=== PATIENT | male | born 1960 | race African-American/Black ===

== ENCOUNTER 2022-11-16 13:45 | Inpatient (IN) | payer BC, SELFPAY ==
[2022-11-16] VITALS (17 sets, daily range): BP systolic 115–233; BP diastolic 80–137; PULSE 89–126; RESP 20–30; TEMP 38.2–38.5; O2SAT 96–99; BMI 25.2
--- NOTE | ~2022-11-16 | US_ITS ---
EXAMINATION: US carotid duplex BI DATE: 11/17/2022 12:25 INDICATION: Encephalopathy with confusion. Cerebral atherosclerosis. TECHNIQUE: Grayscale, color Doppler, and pulsed Doppler images of the cervical carotid arteries were obtained. The degree of vessel stenosis is placed in one of the following categories: normal, <50%, 5 0-69%, >=70% but less than near-occlusion, near-occlusion, or total occlusion. Note that percent sten osis relative to normal distal artery lumen diameter is indirectly measured from velocity measurement s as described by James, et al. Radiology 2003; 229:340-346. COMPARISON: None. FINDINGS: RIGHT: The right common carotid artery (CCA) peak systolic velocity (PSV) is 93 cm/s. The right internal car otid artery (ICA) PSV is 65 cm/s. The right ICA end-diastolic velocity (EDV) is 22 cm/s. The right IC A/CCA PSV ratio is 0.7. Grayscale and color Doppler images yield an estimate of <50% diameter reducti on from plaque in the ICA. The external carotid artery (ECA) PSV is 76 cm/s. There is antegrade flow in the right vertebral artery. LEFT: The left CCA PSV is 95 cm/s. The left ICA PSV is 78 cm/s. The left ICA EDV is 28 cm/s. The left ICA/C CA PSV ratio is 0.8. Grayscale and color Doppler images yield an estimate of <50% diameter reduction from plaque in the ICA. The ECA PSV is 67 cm/s. There is antegrade flow in the left vertebral artery. IMPRESSION: 1. <50% stenosis in the right internal carotid artery. 2. <50% stenosis in the left internal carotid artery. Reviewed, dictated and finalized at location A. MANAGER
--- NOTE | ~2022-11-16 | MR_ITS ---
EXAMINATION: MR brain/brain stem wo con DATE: 11/17/2022 12:03 INDICATION: Altered mental status TECHNIQUE: Magnetic resonance imaging (MRI) of the brain and brainstem was performed without intraven ous contrast. Sequences included sagittal and axial T1-weighted SE, axial diffusion-weighted FS SE, a xial T2*-weighted GRE, axial 3D SWAN, axial T2-weighted FLAIR, and axial T2-weighted FSE. Apparent di ffusion coefficient (ADC) maps were created. COMPARISON: Head CT dated 11/16/2022 FINDINGS: There are no areas of restricted diffusion to suggest acute infarction. Small old lacunar infarcts at the left thalamus and posterior limb of the left internal capsule. There are 3 small foci of suscept ibility artifact consistent with chronic microhemorrhage, 2 in the right thalamus and one in the left neel. No abnormal intracranial mass lesion. There are scattered areas of nonspecific increased T2-we ighted signal intensity in the cerebral and pontine white matter, predominantly involving the deep an d periventricular white matter is within normal limits for age and likely sequela of chronic small ve ssel ischemic disease. There are no intraparenchymal signal abnormalities seen on the other pulse seq uences. The ventricles are symmetric and normal in size. Normal variant cavum of septum pellucidum an d vergae. There are no abnormal extra-axial fluid collections. Flow voids are seen in the cerebral ar teries on the T2-weighted sequences consistent with their expected patency. Changes of bilateral intr aocular lens replacement. Mild mucoperiosteal thickening the anterior bilateral ethmoid sinuses. IMPRESSION: 1. No acute intracranial process. 2. Small old lacunar infarcts at the left thalamus and posterior limb of the left internal capsule. 3. Tiny foci of susceptibility artifact at the right thalamus and left neel consistent with chronic m icrohemorrhage most typically related to hypertension. 4. Mild scattered cerebral and pontine white matter T2 hyperintensity which is within normal limits f or age and likely sequela of chronic small vessel ischemic disease. Reviewed, dictated and finalized at location A. CHBOARD MECHANIC IMPRESSION: 1. No acute intracranial process. 2. Small old lacunar infarcts at the left thalamus and posterior limb of the le ft internal capsule. 3. Tiny foci of susceptibility artifact at the right thalamus and left neel con sistent with chronic microhemorrhage most typically related to hypertension. 4. Mild scattered cerebral and pontine white matter T2 hyperintensity which is within normal limits for age and likely sequela of chronic small vessel ischemi c disease.
--- NOTE | ~2022-11-16 | US_ITS ---
Renal-Bladder ultrasound Clinical History: Renal failure Technique: Real-time sonographic imaging of the kidneys and urinary bladder was performed. Findings: The right kidney measures 11.5 cm in length and the left kidney measures 13.7 cm. There is no hydronephrosis or renal calculus identified. Renal cortical echogenicity is within normal limits. Benign left renal cyst present. The urinary bladder is moderately distended at the time of this exam. No intraluminal echoes are iden tified. No abnormal wall thickening is seen. Numerous small layering gallstones are incidentally noted in the gallbladder. Impression: Unremarkable ultrasound of the kidneys and urinary bladder. Cholelithiasis incidentally noted. Reviewed, dictated and finalized at location . AL SCIENCES DEPARTMENT CHAIR Impression: Unremarkable ultrasound of the kidneys and urinary bladder. Cholelithiasis incidentally noted.
--- NOTE | ~2022-11-16 | CT_ITS ---
Non-contrast Head CT History: Confusion Technique: Axial non-contrast imaging of the brain was performed. Dose reduction technique was used on this scan by utilizing automated exposure control and iterative reconstruction technique. The dose -length product (DLP) was 681.00 mGy-cm. Findings: There is no evidence of intracranial hemorrhage, mass lesion, or definite acute infarct. P robable small chronic lacunar infarcts in the bilateral basal ganglia. The ventricles and subarachno id spaces are normal in size. The calvarium appears normal. The visualized paranasal sinuses and ma stoid air cells are clear. Impression: Probable small chronic lacunar infarcts in bilateral basal ganglia. If there is concern for acute isc hemia, then MRI would be recommended for better evaluation. Reviewed, dictated and finalized at location . ON MOLDING MACHINE OPERATOR Impression: Probable small chronic lacunar infarcts in bilateral basal ganglia. If there is concern for acute ischemia, then MRI would be recommended for better evaluatio n.
--- NOTE | 2022-11-16 13:52 | ECG_ITS ---
Measurements Intervals [place] Rate: 103 P: 48 CA: 156 QRS: 32 QRSD: 105 T: 73 QT: 328 QTc: 430 Interpretive Statements SINUS TACHYCARDIA NONSPECIFIC ST & T-WAVE ABNORMALITY- INF/HIGH LAT LEADS BASELINE ARTIFACT- I, II, III, AVR, AVL, AVF, V1-V2 BORDERLINE ECG NO PREVIOUS ECG AVAILABLE FOR COMPARISON Electronically Signed On 11-16-2022 15:28:40 FLATWORK FINISHER HAND by Mustapha Ramon D.O.
[2022-11-16 13:55] LABS: Glucose Point of Care 416 mg/dl (65-105)
[2022-11-16] MEDS: SODIUM CHLORIDE 0.9% IV 1,000 ML 999 ML IV CONT (14:11)
[2022-11-16] MEDS: KETAMINE HCL (*CRX) 500 MG/10 ML VIAL 50 MG IV PUSH ×2 (14:12)
[2022-11-16 14:28] LABS: Appearance Urine Clear (Clear); Bilirubin Urine Negative (Negative); Blood Urine 1+ (Negative); Color Urine Yellow (Yellow); Glucose Urine UA 3+ mg/dL (Negative); Ketones Urine Trace mg/dL (Negative); Leukocyte Esterase Ur Negative LEU/UL (Negative); Nitrate Urine Negative (Negative); Protein Urine 3+ mg/dL (Negative); Urobilinogen Urine 0.2 mg/dL (<2.0)
[2022-11-16 14:33] LABS: Basophils Percent Auto 0.4 % (0.2-1.2); Eosinophils Percent Auto 0.2 % (0-4.4); Hematocrit 35.1 % (42.0-52.0); Hemoglobin 11.5 g/dL (14.0-18.0); Immature Granulocyte Absolute 0.03 K/mm3 (0.00-0.031); Immature Granulocyte Percent A 0.6 % (0-0.5); Lymphocytes Absolute Auto 1.28 K/mm3 (0.9-3.2); Lymphocytes Percent Auto 25.8 % (18.3-44.2); Mean Corpuscular HGB Conc 32.8 g/dl (32-36); Mean Corpuscular Hemoglobin 27.2 pg (26-34); Mean Platelet Volume 10.3 fl (7.4-10.4); Monocytes Absolute Auto 0.2 K/mm3 (0.1-0.6); Monocytes Percent Auto 3.8 % (2.6-8.5); Mucus Urine Rare /lpf; Neutrophils Absolute Auto 3.4 K/mm3 (1.3-6.7); Neutrophils Percent Auto 69.2 % (45.5-73.1); Platelet Count Result 148 k/mm3 (150-375); Red Blood Count 4.23 M/mm3 (4.6-6.20); Red Cell Distribution Width 11.8 % (11.5-14.5); WBC Urine 0-3 /hpf
[2022-11-16 14:34] LABS: Add Urine Microscopic? YES
[2022-11-16 14:35] LABS: Alveolar/Arterial O2 Gradient 44.5 mmHg; Base Excess ABG -5.8 mEq/l (+/-2.0); Fractional Inspired Oxygen 21 %; Oxygen Content ABG 15.7 %vol (16.0-22.0); Oxygen Saturation ABG 93.9 % (95.0-100.0); Oxyhemoglobin 91.8 % THb (90.0-100.0); PCO2 ABG 30.4 mmHg (35.0-45.0); PO2 ABG 68.8 mmHg (80.0-100.0); PO2 FiO2 Ratio Arterial Blood 3.28 %; Total Hemoglobin 12.1 g/dL (12.0-18.0); pH ABG 7.391 (7.350-7.450)
[2022-11-16 14:36] LABS: Device ROOM AIR; Modified Allen's Test Pass; Site Drawn RIGHT RADIAL
[2022-11-16 14:36] LABS: Lactic Acid Reflex 1.2 mmol/L (0.7-2.0)
[2022-11-16 14:37] LABS: Alanine Aminotransferase 16 U/L (6-50); Albumin Level 3.9 g/dL (3.5-5.1); Alkaline Phosphatase 142 U/L (38-126); Anion Gap 8 mmol/L (8-16); Aspartate Amino Transferase 24 U/L (17-59); Bilirubin,Total 0.4 mg/dL (0.2-1.3); Blood Urea Nitrogen 31 mg/dL (9-20); Carbon Dioxide 24 mmol/L (22-30); Chloride 106 mmol/L (98-107); Estimated Glomerular Filt Rate 25; Ethanol < 10 mg/dL (<10); Glucose 411 mg/dL (65-110); INR 1.1; Potassium 3.7 mmol/L (3.4-5.0); Prothrombin Time 13.3 Seconds (11.1-14.7); Sodium 138 mmol/L (137-145)
[2022-11-16] MEDS: hydrALAZINE HCL 20 MG/ML VIAL 10 MG IV PUSH ×2 (14:38→17:36)
[2022-11-16] MEDS: INSULIN HUMAN REGULAR (*BKC) 100 UNITS/ML 10 UNITS IV PUSH (14:39)
[2022-11-16 14:41] LABS: Amphetamine Screen Urine Negative (Negative); Barbiturate Screen Urine Negative (Negative); Benzodiazepines Screen Urine Negative (Negative); Cannabinoid Screen Urine Negative (Negative); Cocaine Screen Urine Negative (Negative); Methadone Screen Urine Negative (Negative); Opiate Screen Urine Negative (Negative); Phencyclidine Screen Urine Negative (Negative)
[2022-11-16] MEDS: LORazepam INJ (*CRX) 2 MG/ML VIAL IV PUSH (14:56)
[2022-11-16 15:01] LABS: Influenza A QL RT-PCR Negative (Negative); Influenza B QL RT-PCR Negative (Negative); SARS-CoV-2 RNA PCR Negative
[2022-11-16 15:04] LABS: Troponin I 0.066 ng/mL (0.000-0.034)
[2022-11-16] MEDS: LABETALOL HCL INJ 100 MG/20 ML VIAL 20 MG IV PUSH (15:32)
[2022-11-16 15:37] LABS: Glucose Point of Care 274 mg/dl (65-105)
--- NOTE | 2022-11-16 16:06 | ED.AMS ---
HPI - Altered Mental Status General Chief Complaint: Altered Mental Status Stated Complaint: Altered mental status Time Seen by Provider: 11/16/22 13:45 Source: EMS Mode of arrival: EMS Limitations: altered mental status History of Present Illness HPI narrative: 38-year-old with a history of hypertension, diabetes was brought in from home with altered mental status as per the EMS patient was hard to arouse this morning his called 911 upon EMS arrival patient was not responding to verbal cues sternal rub which woke him up but he has been found very confused patient was later transferred to the ER. Upon arrival to the ER patient is quite agitated and combative. As per the family there is no history of falling no alcohol or drug abuse. Daughter states that he was recently started on new antihypertensive medication which she is not quite sure. Has a history of diabetes and CKD and is scheduled to see physiotherapy aide in the next few weeks. Timing confirmed by: spouse Severity: moderate Related Data Home Medications Medication Instructions Recorded Confirmed insulin glargine-yfgn 100 unit/mL unit subcut 11/16/22 subcutaneous solution (Semglee (insulin glargine-yfgn)) lisinopril 10 tablet 11/16/22 mg-hydrochlorothiazide 12.5 mg tablet simvastatin 40 mg tablet mg 11/16/22 Allergies Allergy/AdvReac Type Severity Reaction Status Date / Time No Known Allergies Allergy Verified 11/16/22 14:51 Review of Systems Review of Systems: ROS unobtainable: Yes unobtainable due to medical condition PMFSH Past Medical History Medical History (Updated 11/16/22 @ 16:15 by Lalo Chambers MD) Diabetes mellitus Social History Social History (Updated 10/30/19 @ 17:49 by Taco Lr, PAGold) Smoking status: Never smoker Exam Narrative: GENERAL: well-nourished, confused , combative HEAD: Normocephalic, atraumatic. EYES: PERRLA and EOMI. ENT: Nares clear, no rhinorrhea or epistaxis. Mucous membranes moist. NECK: Supple. CHEST: Clear to auscultation. No respiratory distress. HEART: Regular rate and rhythm. No murmur heard. Normal peripheral pulses. ABDOMEN: Soft, nontender, nondistended, normal active bowel sounds. EXTREMITIES: Normal range of motion. No edema. SKIN: Warm, dry, no rash. NEURO: No focal deficits. Alert PSYCH: Normal mood and affect. Course Course Emergency Course: 62-year-old with a history of hypertension, diabetes was brought in with altered mental status he was quite agitated upon arrival to the ER I did give him ketamine to calm him down to obtain lab work, CT findings. However his blood pressure has been quite elevated systolic of 233 and a diastolic of 125 will give hydralazine 10 mg IV. I discussed with Dr. Taylor and recommended Precedex and labetalol. Vital Signs Vital signs: Vital Signs Pulse Rate 116 H 11/16/22 13:40 Respiratory Rate 20 11/16/22 13:40 Blood Pressure 233/125 H 11/16/22 13:40 Pulse Oximetry 96 11/16/22 13:40 Oxygen Delivery Room Air 11/16/22 13:40 Pulse Rate 119 H 11/16/22 15:30 Respiratory Rate 25 H 11/16/22 15:30 Blood Pressure 200/131 H 11/16/22 15:30 Pulse Oximetry 98 11/16/22 15:30 Oxygen Delivery Room Air 11/16/22 13:40 MDM - Altered Mental Status MDM Narrative Medical decision making narrative: 62-year-old with a history of hypertension diabetes was brought in for altered mental status he was extremely agitated and confused we will give him ketamine to sedate and obtain CT of the head. Obtain lab work including tox screen. His blood pressure was 233/125 will give 10 mg hydralazine and reassess Differential Diagnosis Differential diagnosis: Likely altered mental status, delirium, subarachnoid hemorrhage and other (Hypertensive encephalopathy, metabolic encephalopathy) Lab Data 11/16/22 14:21 11/16/22 14:21 Labs: Lab Results 11/16/22 11/16/22 11/16/22 Range/Units 13:51 14
[2022-11-16] MEDS: dexmedeTOMIDine 400 MCG/100 ML 400 MCG/100 ML BAG IV CONT (16:11)
--- NOTE | 2022-11-16 16:17 | ADMGEN ---
This patient, Aron Conte, was admitted to Intensive Care Unit-3 at 1615. Patient/family oriented to hospital policies and general routines including ID bracelet, bed and alarms, visiting hours, pain management, procedures, bathroom and other care routines, personal items, smoking policy, room service/diet, and visiting hours. Information on how to activate the Rapid Response Team has been discussed. Patient/Family are encouraged to report perceived risks to care and to ask questions if they do not understand what they are told or what they should do.
[2022-11-16 16:24] LABS: Glucose Point of Care 249 mg/dl (65-105)
--- NOTE | 2022-11-16 17:01 | PM.IMHP ---
H&P: HPI History of Present Illness Date/Time: 11/16/22 17:01 Chief Complaint: Altered mental status Narrative: This is a 62-year-old male patient who has a history of hypertension that is been uncontrolled for quite some time. The patient was brought into the emergency room from home due to altered mental status. The patient was difficult to arouse this morning and his called 911. The patient was not responding to verbal cues or sternal rub. When the patient did wake up use very confused. Upon arrival to the emergency room he was quite agitated and combative. The family stated that there was no alcohol or drug use. According to the daughter the patient was sent home from work 1 day due to elevated blood pressure. His medications were changed around but his blood pressure remained elevated. The patient has a history of diabetes and chronic kidney disease and was scheduled to see a superintendent pressure within the next couple weeks. Head CT was read as probable small chronic lacunar infarcts in bilateral basal ganglia. If there is concern for ski Kelsy then MRI would be recommended for later evaluation. Initially the patient was saying that he could not see. 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 The patient was able to tell me how many fingers that I held up. The patient was given ketamine in the emergency room, IV fluids, Apresoline, insulin, Ativan, and labetalol. The patient was admitted to inpatient status in ICU on the date of service of 11/16/2022. Review of Systems Review of Systems: See HPI All systems reviewed & are unremarkable except as noted in HPI and below Constitutional: Constitutional: Reports as per HPI and Reports no additional constitutional complaints Eyes: Eyes: Reports as per HPI and Reports no additional eye complaints ENT: Reports system reviewed and no additional complaints, except as documented and Reports Normal hearing present Cardiovascular: Cardiovascular: Reports no additional cardiovascular complaints Respiratory: Respiratory: Reports no additional respiratory complaints and Reports no additional respiratory complaints Gastrointestinal: Gastrointestinal: Reports as per HPI and Reports no additional gastrointestinal complaints Musculoskeletal: Musculoskeletal: Reports no additional musculoskeletal complaints Integumentary/Breasts: Skin/Breast: Reports system reviewed and no additional complaints, except as docu and Reports as per HPI Neurologic: Reports system reviewed and no additional complaints, except as documented, Reports as per HPI and Reports Normal hearing present Psychiatric: Psychiatric: Reports no additional psychiatric complaints and Reports as per HPI Endocrine: Endocrine: Reports no additional endocrine complaints Hematologic/Lymphatic: Hematologic/Lymphatic: Reports no additional hematologic/lymphatic complaints Allergic/Immunologic: Allergic/Immunologic: Reports no additional allergic/immunologic complaints PMFSH Past Medical History Medical History (Updated 11/16/22 @ 22:32 by Kathia Brandon NP) 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 He did have 2 sons but 1 in an injury. He has 1 daughter. He has never smoked. He works for [employer]. 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 Code status full code Smoking status: Never smoker Alcohol intake: never Substance use: never Substance use type: does not use Spi
[2022-11-16] MEDS: INSULIN ASPART (*BKC) 100 UNITS/ML SUB-Q (17:39)
--- NOTE | 2022-11-16 20:01 | PC.NURSE ---
Family unable to give most updated and recent daily medications the patient takes at home. Patient is currently altered and is unable to provide accurate medical or medication history at this time.
[2022-11-16] MEDS: MINERAL OIL/WHITE PETROLATUM OINTMENT 1 APPLIC EACH EYE (20:09)
[2022-11-17] VITALS (12 sets, daily range): BP systolic 118–155; BP diastolic 74–103; PULSE 62–99; RESP 13–20; TEMP 36.1–37.6; O2SAT 97–100
--- NOTE | 2022-11-17 | ECHO_ITS ---
Patient Info Name: Aron Conte Age: 62 years : 1960 Gender: Male Ht: 73 in Wt: 191 lbs BSA: 2.12 m2 HR: 66 bpm BP: 136 / 88 mmHg Heart Rhythm: Sinus Rhythm Exam Date: 11/17/2022 7:54 AM Exam Location: [facility] Patient Status: Inpatient Admit Date: 11/16/2022 Staff Ordering Physician: Kathia Brandon NP Bootmaker Hand: Mir Lopez RDCS, RT Attending Provider: Shahab Lenz MD Referring Physician: Roma VILLATORO; Exam Type: CA echo doppler color flow Study Info Indications I10 - Essential (primary) hypertension Complete two-dimensional, color flow and Doppler transthoracic echocardiogram is performed. Strain analysis performed. Summary 1. Complete two-dimensional, color flow and Doppler transthoracic echocardiogram is performed. 2. Left ventricular chamber dimension is normal. 3. Left ventricular systolic function is mildly reduced, estimated at 45-50%. 4. There is severe concentric increased left ventricular wall thickness. 5. The left ventricular diastolic function is grade I diastolic dysfunction. 6. Global longitudinal strain is abnormal at -10 %. Strain pattern does have some apical sparing, which can be seen in amyloid cardiomyopathy. Recommend clinical correlation. 7. Right ventricular systolic function is normal. 8. Left atrial chamber dimension is mildly enlarged. 9. Right atrial chamber dimension is mildly enlarged. 10. There is mild tricuspid valve regurgitation. 11. The aortic root size at the sinus of Valsalva is dilated. Left Ventricle Left ventricular chamber dimension is normal. Left ventricular systolic function is mildly reduced, estimated at 45-50%. There is severe concentric increased left ventricular wall thickness. The left ventricular diastolic function is grade I diastolic dysfunction. Global longitudinal strain is abnormal at -10 %. Strain pattern does have some apical sparing, which can be seen in amyloid cardiomyopathy. Recommend clinical correlation. Right Ventricle Right ventricular chamber dimension is normal. Right ventricular systolic function is normal. Left Atria Left atrial chamber dimension is mildly enlarged. Right Atria Right atrial chamber dimension is mildly enlarged. Atrial Septum Intact interatrial septum visualized by color flow imaging. Aortic Valve The aortic valve is trileaflet. There is no aortic valve stenosis. There is no aortic valve regurgitation. Pulmonic Valve The pulmonic valve is normal. There is trace pulmonic regurgitation. Mitral Valve The mitral valve has thickened leaflets. There is no mitral valve stenosis. There is trace mitral valve regurgitation. There is mild mitral valve calcification. Tricuspid Valve There is no significant tricuspid valve stenosis. There is mild tricuspid valve regurgitation. Pericardium/Pleural There is trivial pericardial effusion. Inferior Vena Cava Normal inferior vena cava with >50% collapse upon inspiration consistent with normal right atrial pressure, 3 mmHg. Aorta The aortic root size at the sinus of Valsalva is dilated. Left Ventricular Outflow Tract Name Value Normal LVOT 2D LVOT Diameter 2.4 cm LVOT Doppler
[2022-11-17 00:07] LABS: Glucose Point of Care 340 mg/dl (65-105)
[2022-11-17 01:03] LABS: Eosinophil Urine None Seen % (None Seen)
[2022-11-17] MEDS: INSULIN ASPART (*BKC) 100 UNITS/ML SUB-Q ×5 (01:44→20:27)
[2022-11-17] MEDS: SODIUM CHLORIDE 0.9% IV 250 ML 50 ML IV CONT (01:48)
[2022-11-17 03:45] LABS: Albumin Level 3.1 g/dL (3.5-5.1); Anion Gap 7 mmol/L (8-16); Blood Urea Nitrogen 31 mg/dL (9-20); CRP 1.1 mg/dL (<1.0); Calcium 7.7 mg/dL (8.4-10.2); Carbon Dioxide 20 mmol/L (22-30); Chloride 109 mmol/L (98-107); Creatine Kinase 255 U/L (55-170); Estimated CRCL calculation 24 ml/min; Estimated Glomerular Filt Rate 24; Glucose 358 mg/dL (65-110); Magnesium 1.5 mg/dL (1.6-2.3); Phosphorus 4.1 mg/dL (2.5-4.5); Potassium 3.4 mmol/L (3.4-5.0); Sodium 136 mmol/L (137-145)
[2022-11-17 03:48] LABS: Complement C3 119 mg/dL (88-165)
[2022-11-17 03:52] LABS: Erythrocyte Sedimentation Rate 71 mm/hr (0-20)
[2022-11-17 04:22] LABS: HIV 1/2 Ab P24 Ag Result Negative (Negative)
[2022-11-17] MEDS: dexmedeTOMIDine 400 MCG/100 ML 400 MCG/100 ML BAG 8.86 MCG IV CONT (04:35)
[2022-11-17 04:46] LABS: Creatinine Urine 117.9 mg/dL
[2022-11-17 04:50] LABS: Hepatitis B Surface Antigen Negative (Negative)
[2022-11-17 04:55] LABS: Hepatitis B Core IgM Result Negative (Negative)
[2022-11-17 04:55] LABS: Potassium Urine Random 31.2 meq/L
[2022-11-17 05:08] LABS: Hepatitis B Surface Anti Res Negative; Hepatitis C Virus Antibody Negative (Negative)
[2022-11-17 06:16] LABS: Glucose Point of Care 366 mg/dl (65-105)
[2022-11-17 06:53] LABS: Total Protein Urine Random > 600 mg/dL
--- NOTE | 2022-11-17 09:16 | WPDCNINT ---
Assessment and Plan Assessment and plan (1) Altered mental status: Code(s): R41.82 - Altered mental status, unspecified Status: Acute Assessment and Plan: Patient presented with confusion and altered mental status. In ER he was combative agitated On presentation he had systolic blood pressure of 233. Head CT was negative It appears patient has hypertensive encephalopathy. Patient was given acute remain and started on Precedex infusion overnight This morning patient is now calm alert awake and oriented x3 and his blood pressures has come down He may have had a CVA and MRI is ordered His tox screen was negative as was alcohol level Check ammonia level and TSH Speech evaluation, PT OT evaluation (2) Diabetes mellitus: Code(s): E11.9 - Type 2 diabetes mellitus without complications Status: Acute Assessment and Plan: Uncontrolled diabetes mellitus S from history his blood sugar level Patient is not compliant with his insulin and takes it irregularly HbA1c is pending Change sliding scale to 4 output moderate level. Switch to Q a.c. and HS once patient started eating Will start Lantus 25 units and titrate as needed Consult crib attendant (3) Hyperlipidemia: Code(s): E78.5 - Hyperlipidemia, unspecified Status: Acute Assessment and Plan: Continue simvastatin (4) CKD (chronic kidney disease) stage 4, GFR 15-29 ml/min: Code(s): N18.4 - Chronic kidney disease, stage 4 (severe) Status: Acute Assessment and Plan: Patient presented with elevated creatinine of 3.1 which is 3.2 today. Patient has only mildly elevated BUN which is suggestive of chronic to creatinine level which could be explained by his uncontrolled hypertension and diabetes. Consult nephrology Renal ultrasound is ordered and pending Other workup for chronic kidney disease is ordered and pending Will give IV fluids monitor urine output electrolytes and creatinine (5) Noncompliance: Code(s): Z91.199 - Patient's noncompliance with other medical treatment and regimen due to unspecified reason Status: Acute Assessment and Plan: Patient is noncompliant with his medications. I have counseled encouraged patient to take his medications regularly (6) Electrolyte abnormality: Code(s): E87.8 - Other disorders of electrolyte and fluid balance, not elsewhere classified Status: Acute Assessment and Plan: Replace low potassium magnesium (7) Hypertensive emergency: Code(s): I16.1 - Hypertensive emergency Status: Acute Assessment and Plan: Patient presented with systolic blood pressure of above 200. He was given IV labetalol in ER. He was agitated in ER and was given IV ketamine and was started on Precedex infusion. This led to improvement in blood pressure patient blood pressure spontaneously decreased without requiring any further intervention. Now off of Precedex He is calm and alert and awake I will resume p.o. blood pressure medications once he clears a swallow evaluation Echocardiogram is ordered and pending Plan DVT prophylaxis -SCDs Stress ulcer prophylaxis - Consult speech for swallow evaluation PT OT consult Code Status - Full Code Transfer out of ICU today Edger Liner Consult Note Consult date: 11/17/22 Reason for consult: Hypertensive emergency HPI: Aron Conte is a 62 year old male with past medical history of hypertension diabetes and visual impairment who presented yesterday to ER with chief complaint of altered mental status and confusion. In the ER patient's reported that she was having hard time waking him up he was confused when aroused. In ER patient was agitated and combative and a systolic blood pressure was 233. Family denied any alcohol or drug abuse. Patient was given ketamine for agitation in ER. And was given labetalol. His blood pressure improved and patient became more calm. He was started on Precedex infusion a
[2022-11-17] MEDS: KCL 40 MEQ/0.45% NS 1,000 ML 100 ML IV CONT (09:21)
[2022-11-17] MEDS: MINERAL OIL/WHITE PETROLATUM OINTMENT 1 APPLIC EACH EYE (09:21)
[2022-11-17] MEDS: MAGNESIUM SULF 2 GM/WATER 50ML 2 GM/50 ML BAG IVPB (09:21)
[2022-11-17] MEDS: INSULIN GLARGINE (*BKC) 100 UNITS/ML 25 UNITS SUB-Q (09:25)
[2022-11-17 09:39] LABS: Glucose Point of Care 304 mg/dl (65-105)
[2022-11-17 10:05] LABS: Ammonia < 9 umol/L (9-30)
--- NOTE | 2022-11-17 11:01 | PCSTNOTE ---
Please refer to the Bedside Swallow Evaluation in the EMR. Please note, silent aspiration cannot be ruled out at bedside.
[2022-11-17 12:39] LABS: Glucose Point of Care 223 mg/dl (65-105)
--- NOTE | 2022-11-17 12:44 | P.CONNP_ITS ---
Assessment and Plan Assessment and plan (1) CKD (chronic kidney disease): Code(s): N18.9 - Chronic kidney disease, unspecified Status: Chronic Assessment and Plan: * specifics of this are not clear * per patient/family, he was recently told about his kidney disease on recent ER visit at [facility] * he is apparently scheduled to see an outpatient sander portable machine for further evaluation * appears compensated at this time * suspect poor control of hypertension and diabetes to blame * follow-up on renal ultrasound and serologies ordered * follow repeat labs and UOP (2) Altered mental status: Code(s): R41.82 - Altered mental status, unspecified Status: Acute Assessment and Plan: * as noted on admission * associated with systolic BP > [address] * presumably hypertensive encephalopathy * more calm and awake today * BP doing better * negative tox screen * MRI ordered for further evalutaion * follow mentation (3) Hypertensive emergency: Code(s): I16.1 - Hypertensive emergency Status: Acute Assessment and Plan: * as noted by presentation * BP controlled more so with sedation than BP medications * to resume oral medications soon * follow-up on Echo * follow BP parameters * given CKD, would avoid overcontrol of BP -- aim for 140 - 150s systolic (4) Diabetes mellitus: Code(s): E11.9 - Type 2 diabetes mellitus without complications Status: Chronic Assessment and Plan: * poor control suspected * follow-up on A1c * on Lantus and SSI * glycemic control Long extensive discussion (> 20 minutes) with the patient's at bedside regarding his renal dysfunction and hypertension and my concern that his hypertension and possibly his diabetes are partly to blame for his renal insufficiency. Per his 's report, he is scheduled to see a sander portable machine for further evaluation of his CKD. Will follow up on his renal ultrasound and what serological studies have been ordered Will continue to follow. History of Present Illness Reason for Consult Consult date: 11/17/22 Reason for consult: acute renal failure Chief Complaint Chief complaint: hypertensive encephalopathy History of Present Illness Narrative: The patient is a 62-year-old male with a past medical history as outlined below who presented to [facility] Emergency room for altered mental status. Most of the information I have obtained is from review of the electronic medical record as well as discussion with the physicians/nurses involved in the patient's care along with the patient as he is currently more awake /calmer and able to provide some history. The patient's called 911 when apparently earlier this morning he was difficult to arouse. He was not responding to sternal rub or verbal cues apparently. When he did eventually of wake up, he was quite confused. His called 911 and he was subsequently transferred to the emergency room for further assessment. Workup and evaluation emergency room demonstrated the patient be quite hy pertensive and agitated along with being combative. Apparently, per other family members, he was sent home from work previously due to elevated blood pressures. He was given medications in the emergency room to help his blood pressure and given his agitation / combativeness, he was also given IV sedation as well. These interventions did improve his blood pressure but his mental status did not really improve. On further questioning, he apparently had been seen in [facility] E
--- NOTE | 2022-11-17 12:44 | PM.CNNEP ---
Assessment and Plan Assessment and plan (1) CKD (chronic kidney disease): Code(s): N18.9 - Chronic kidney disease, unspecified Status: Chronic Assessment and Plan: specifics of this are not clear per patient/family, he was recently told about his kidney disease on recent ER visit at [facility] he is apparently scheduled to see an outpatient barrel lathe operator for further evaluation appears compensated at this time suspect poor control of hypertension and diabetes to blame follow-up on renal ultrasound and serologies ordered follow repeat labs and UOP (2) Altered mental status: Code(s): R41.82 - Altered mental status, unspecified Status: Acute Assessment and Plan: as noted on admission associated with systolic BP > [address] presumably hypertensive encephalopathy more calm and awake today BP doing better negative tox screen MRI ordered for further evalutaion follow mentation (3) Hypertensive emergency: Code(s): I16.1 - Hypertensive emergency Status: Acute Assessment and Plan: as noted by presentation BP controlled more so with sedation than BP medications to resume oral medications soon follow-up on Echo follow BP parameters given CKD, would avoid overcontrol of BP -- aim for 140 - 150s systolic (4) Diabetes mellitus: Code(s): E11.9 - Type 2 diabetes mellitus without complications Status: Chronic Assessment and Plan: poor control suspected follow-up on A1c on Lantus and SSI glycemic control Long extensive discussion (> 20 minutes) with the patient's at bedside regarding his renal dysfunction and hypertension and my concern that his hypertension and possibly his diabetes are partly to blame for his renal insufficiency. Per his 's report, he is scheduled to see a barrel lathe operator for further evaluation of his CKD. Will follow up on his renal ultrasound and what serological studies have been ordered Will continue to follow. History of Present Illness Reason for Consult Consult date: 11/17/22 Reason for consult: acute renal failure Chief Complaint Chief complaint: hypertensive encephalopathy History of Present Illness Narrative: The patient is a 62-year-old male with a past medical history as outlined below who presented to [facility] Emergency room for altered mental status. Most of the information I have obtained is from review of the electronic medical record as well as discussion with the physicians/nurses involved in the patient's care along with the patient as he is currently more awake /calmer and able to provide some history. The patient's called 911 when apparently earlier this morning he was difficult to arouse. He was not responding to sternal rub or verbal cues apparently. When he did eventually of wake up, he was quite confused. His called 911 and he was subsequently transferred to the emergency room for further assessment. Workup and evaluation emergency room demonstrated the patient be quite hypertensive and agitated along with being combative. Apparently, per other family members, he was sent home from work previously due to elevated blood pressures. He was given medications in the emergency room to help his blood pressure and given his agitation / combativeness, he was also given IV sedation as well. These interventions did improve his blood pressure but his mental status did not really improve. On further questioning, he apparently had been seen in [facility] Emergency room recently and was told that he had chronic kidney disease and that he needs to follow up with a barrel lathe operator which was apparently scheduled in the next couple of weeks. I had CT scan did not show any acute intracranial abnormalities but there was still a concern for possible CVA. Given his issues with his altered mentation and hypertension, he was admitted to the intensi
[2022-11-17 14:09] LABS: Hemoglobin A1C 10.7 % (<5.7)
[2022-11-17 16:10] LABS: Glucose Point of Care 155 mg/dl (65-105)
[2022-11-17 20:31] LABS: Glucose Point of Care 295 mg/dl (65-105)
[2022-11-17 23:42] LABS: Basophils Percent Auto 0.4 % (0.2-1.2); Eosinophils Absolute Auto 0.1 K/mm3 (0-0.3); Eosinophils Percent Auto 1.4 % (0-4.4); Hematocrit 31.3 % (42.0-52.0); Hemoglobin 10.5 g/dL (14.0-18.0); Immature Granulocyte Absolute 0.03 K/mm3 (0.00-0.031); Immature Granulocyte Percent A 0.5 % (0-0.5); Lymphocytes Absolute Auto 1.88 K/mm3 (0.9-3.2); Lymphocytes Percent Auto 33.2 % (18.3-44.2); Mean Corpuscular HGB Conc 33.5 g/dl (32-36); Mean Corpuscular Hemoglobin 27.8 pg (26-34); Mean Corpuscular Volume 82.8 fl (80-100); Mean Platelet Volume 10.1 fl (7.4-10.4); Monocytes Absolute Auto 0.4 K/mm3 (0.1-0.6); Monocytes Percent Auto 6.9 % (2.6-8.5); Neutrophils Absolute Auto 3.3 K/mm3 (1.3-6.7); Neutrophils Percent Auto 57.6 % (45.5-73.1); Platelet Count Result 145 k/mm3 (150-375); Red Blood Count 3.78 M/mm3 (4.6-6.20); Red Cell Distribution Width 12.1 % (11.5-14.5); White Blood Count 5.7 K/mm3 (4.5-10.0)
[2022-11-18] VITALS (12 sets, daily range): BP systolic 129–159; BP diastolic 72–97; PULSE 80–106; RESP 17–22; TEMP 36.4–37.7; O2SAT 96–99; BMI 25.7
[2022-11-18 03:55] LABS: Hematocrit 31.3 % (42.0-52.0); Hemoglobin 10.4 g/dL (14.0-18.0); Mean Corpuscular HGB Conc 33.2 g/dl (32-36); Mean Corpuscular Hemoglobin 27.8 pg (26-34); Mean Corpuscular Volume 83.7 fl (80-100); Mean Platelet Volume 10.6 fl (7.4-10.4); Platelet Count Result 143 k/mm3 (150-375); Red Blood Count 3.74 M/mm3 (4.6-6.20); Red Cell Distribution Width 12.2 % (11.5-14.5); White Blood Count 5.6 K/mm3 (4.5-10.0)
[2022-11-18 04:14] LABS: Alanine Aminotransferase 14 U/L (6-50); Albumin Level 2.8 g/dL (3.5-5.1); Alkaline Phosphatase 90 U/L (38-126); Anion Gap 9 mmol/L (8-16); Aspartate Amino Transferase 33 U/L (17-59); Bilirubin,Total 0.4 mg/dL (0.2-1.3); Blood Urea Nitrogen 38 mg/dL (9-20); Calcium 7.7 mg/dL (8.4-10.2); Carbon Dioxide 18 mmol/L (22-30); Chloride 108 mmol/L (98-107); Estimated CRCL calculation 22 ml/min; Estimated Glomerular Filt Rate 21; Glucose 150 mg/dL (65-110); Phosphorus 4.6 mg/dL (2.5-4.5); Potassium 3.1 mmol/L (3.4-5.0); Sodium 135 mmol/L (137-145)
[2022-11-18 08:09] LABS: Glucose Point of Care 279 mg/dl (65-105)
[2022-11-18] MEDS: INSULIN ASPART (*BKC) 100 UNITS/ML SUB-Q (08:59)
[2022-11-18] MEDS: INSULIN GLARGINE (*BKC) 100 UNITS/ML 30 UNITS SUB-Q (09:00)
[2022-11-18] MEDS: amLODIPine BESYLATE 5 MG TABLET 10 MG PO (09:01)
[2022-11-18] MEDS: ACETAMINOPHEN 325 MG TABLET 650 MG PO (10:18)
--- NOTE | 2022-11-18 11:34 | PM.PNNEP ---
Progress Note: A&P Assessment and Plan (1) CKD (chronic kidney disease): Code(s): N18.9 - Chronic kidney disease, unspecified Status: Chronic Assessment and Plan: specifics of this are not clear per patient/family, he was recently told about his kidney disease on recent ER visit at [facility] records requested but not available at this time he is apparently scheduled to see an outpatient lease analyst for further evaluation appears compensated at this time suspect poor control of hypertension and diabetes to blame renal ultrasound unremarkable serologies pending follow repeat labs and UOP (2) Altered mental status: Code(s): R41.82 - Altered mental status, unspecified Status: Acute Assessment and Plan: resolved as noted on admission associated with systolic BP > [address] presumably hypertensive encephalopathy more calm and awake today BP doing better negative tox screen MRI of brain results noted follow mentation (3) Hypertensive emergency: Code(s): I16.1 - Hypertensive emergency Status: Acute Assessment and Plan: resolved as noted by presentation back on home oral medications Echo reuslts reviewed follow BP parameters given CKD, would avoid overcontrol of BP -- aim for 140 - 150 systolic (4) Diabetes mellitus: Code(s): E11.9 - Type 2 diabetes mellitus without complications Status: Chronic Assessment and Plan: poor control suspected follow-up on A1c on Lantus and SSI glycemic control Will continue to follow. Subjective Date/time seen: 11/18/22 11:34 No apparent distress noted at the time of my visit; BP control seems acceptable and his mentation appears back to baseline per family; no other issues/events overnight or earlier this morning; no complaints voiced currently. Exam Narrative: General: WD/WN AA male in NAD Heart: normal S1 and S2; no rub Lungs: clear to auscultation Abdomen: soft, nontender, nondistended, positive bowel sounds Extremities: no cyanosis or clubbing; no edema Skin: warm and dry Objective Data Vital Signs Vital Signs: Vital Signs Temp Pulse Resp BP Pulse Ox O2 Del Method 11/18/22 10:00 97 134/93 H 98 11/18/22 08:00 87 19 96 Room Air 11/18/22 08:00 98.9 F 87 19 148/97 H 96 11/18/22 08:00 87 11/18/22 06:00 86 18 148/92 H 97 11/18/22 06:00 85 11/18/22 04:00 87 Room Air 11/18/22 04:00 98.5 F 87 22 H 145/90 H 97 11/18/22 04:00 87 11/18/22 02:00 90 18 136/86 97 11/18/22 02:00 95 11/18/22 00:00 80 19 97 Room Air 11/18/22 00:00 99.8 F H 80 19 156/95 H 97 11/18/22 00:00 80 11/17/22 22:00 73 20 155/97 H 98 11/17/22 22:00 76 11/17/22 20:00 80 11/17/22 20:00 98.3 F 80 18 139/103 H 99 11/17/22 19:50 Room Air Intake/Output Intake/Output: Intake & Output 11/15/22 11/16/22 11/17/22 11/18/22 23:59 23:59 23:59 23:59 Intake Total 6323 993 0899 Output Total 200 1000 350 Balance 865 -135 990 Meds/Results Medications: Active Medications Generic Name Dose Route Start Last Admin Trade Name Freq PRN Reason Stop Dose Admin Acetaminophen 650 mg 11/18/22 10:00 11/18/22 10:18 Acetaminophen 325 Mg Tablet PO 650 mg Q4H PRN Administration Headache Amlodipine Besylate 10 mg 11/18/22 09:00 11/18/22 09:01 Amlodipine Besylate 5 Mg Tablet PO 10 mg QAM IVAN Administration Dextrose 12.5 gm 11/16/22 22:22 Dextrose 50% 25 Gm/50 Ml Syringe IV PUSH PRN PRN Hypoglycemia Protocol Glucagon 1 mg 11/16/22 22:22 Glucagon For Inj 1 Mg Vial IM PRN PRN Hypoglycemia Protocol Glucose 15 gm 11/16/22 22:22 Glucose Oral Gel 15 Gm Of Glucse In 37.5 Gm Tube PO PRN PRN Hypoglycemia Protocol Hydralazine HCl 20 mg 11/16/22 18:25 Hydralaz
--- NOTE | 2022-11-18 11:34 | P.PNNP_ITS ---
Progress Note: A&P Assessment and Plan (1) CKD (chronic kidney disease): Code(s): N18.9 - Chronic kidney disease, unspecified Status: Chronic Assessment and Plan: * specifics of this are not clear * per patient/family, he was recently told about his kidney disease on recent ER visit at [facility] * records requested but not available at this time * he is apparently scheduled to see an outpatient contact center professional for further evaluation * appears compensated at this time * suspect poor control of hypertension and diabetes to blame * renal ultrasound unremarkable * serologies pending * follow repeat labs and UOP (2) Altered mental status: Code(s): R41.82 - Altered mental status, unspecified Status: Acute Assessment and Plan: * resolved * as noted on admission * associated with systolic BP > [address] * presumably hypertensive encephalopathy * more calm and awake today * BP doing better * negative tox screen * MRI of brain results noted * follow mentation (3) Hypertensive emergency: Code(s): I16.1 - Hypertensive emergency Status: Acute Assessment and Plan: * resolved * as noted by presentation * back on home oral medications * Echo reuslts reviewed * follow BP parameters * given CKD, would avoid overcontrol of BP -- aim for 140 - 150 systolic (4) Diabetes mellitus: Code(s): E11.9 - Type 2 diabetes mellitus without complications Status: Chronic Assessment and Plan: * poor control suspected * follow-up on A1c * on Lantus and SSI * glycemic control Will continue to follow. Subjective Date/time seen: 11/18/22 11:34 No apparent distress noted at the time of my visit; BP control seems acceptable and his mentation appears back to baseline per family; no other issues/events overnight or earlier this morning; no complaints voiced currently. Exam Narrative: General: WD/WN AA male in NAD Heart: normal S1 and S2; no rub Lungs: clear to auscultation Abdomen: soft, nontender, nondistended, positive bowel sounds Extremities: no cyanosis or clubbing; no edema Skin: warm and dry Objective Data Vital Signs Vital Signs: Vital Signs Temp Pulse Resp BP Pulse Ox O2 Del Method 11/18/22 10:00 97 134/93 H 98 11/18/22 08:00 87 19 96 Room Air 11/18/22 08:00 98.9 F 87 19 148/97 H 96 11/18/22 08:00 87 11/18/22 06:00 86 18 148/92 H 97 11/18/22 06:00 85 11/18/22 04:00 87 Room Air 11/18/22 04:00 98.5 F 87 22 H 145/90 H 97 11/18/22 04:00 87 11/18/22 02:00 90 18 136/86 97 11/18/22 02:00 95 11/18/22 00:00 80 19 97 Room Air 11/18/22 00:00 99.8 F H 80 19 156/95 H 97 11/18/22 00:00 80 11/17/22 22:00 73 20 155/97 H 98 11/17/22 22:00 76 11/17/22 20:00 80 11/17/22 20:00 98.3 F 80 18 139/103 H 99 11/17/22 19:50 Room Air Intake/Output Intake/Output: Intake & Output 11/15/22 11/16/22 11/17/22 11/18/22 23:59 23:59 23:59 23:59 Intake Total 6361 996 7230 Output Total 200 1000 350 Balance 865 -135 990 Meds/Results Medi
[2022-11-18 11:37] LABS: Glucose Point of Care 124 mg/dl (65-105)
--- NOTE | 2022-11-18 12:58 | PC.NURSE ---
This patient, Aron Conte, was transferred to [facility] on 11/18/22 at 1250. Personal belongings sent with patient. Report given to Sowmya. Appropriate documentation sent with patient.
--- NOTE | 2022-11-18 14:15 | PM.IMPN ---
Progress Note: A&P Assessment and Plan (1) Altered mental status: Code(s): R41.82 - Altered mental status, unspecified Status: Acute (2) Diabetes mellitus: Code(s): E11.9 - Type 2 diabetes mellitus without complications Status: Acute (3) CKD (chronic kidney disease) stage 4, GFR 15-29 ml/min: Code(s): N18.4 - Chronic kidney disease, stage 4 (severe) Status: Acute (4) Hypertensive emergency: Code(s): I16.1 - Hypertensive emergency Status: Acute Plan Patient confused. Monitoring systolic blood pressure. Head CT was negative. Hypertensive encephalopathy. MRI results pending. Speech, PT OT eval. Systolic pressure of 200. Continue IV labetalol Starting hydralazine and amlodipine HBA1c pending ( goal <7.0%) , Monitor vitamin B12 levels Optimize PEYMAN-inhibitor and statin Routine glucose monitoring. Watch for Hypoglycemia. BMI goal < 25 Sliding scale insulin Lantus 25 units H&H equal 10.4/31.3 Creatinine 3.6 And gentle hydration. Avoid nephrotoxic drugs. Monitor antihypertensive drugs Avoid NSAIDs. Routine CMP monitor GFR. Monitor electrolytes potassium levels. Potassium 3.1 Dose antibiotics depending on creatinine clearance History of noncompliance of medications noted Subjective Date/time seen: 11/18/22 14:15 Interval history: Patient still appears confused Exam Narrative: GENERAL: Well appearing, well-nourished, non-toxic, in no acute distress. HEAD: Normocephalic, atraumatic. NECK: Supple. No adenopathy, no masses. RESPIRATORY: Airway patent, respirations nonlabored. Clear to auscultation bilaterally, no rales, rhonchi, wheezing. CARDIOVASCULAR: Regular rate and rhythm without murmurs, rubs, or gallops. Peripheral pulses 2+ and equal bilaterally. ABDOMINAL: Soft, nontender, nondistended, no hepatosplenomegaly. Normoactive BS. MUSCULOSKELETAL: no Epigastric and no hypochondrial tenderness SKIN: Warm, dry, normal color. No rashes. NEURO: Confusion Objective Data Vital Signs Vital Signs: Vital Signs - 24 hr 11/17/22 16:00 11/17/22 16:00 11/17/22 16:00 Temperature 36.9 C Pulse Rate 92 92 92 Respiratory Rate 16 16 Blood Pressure 118/81 Pulse Oximetry 100 100 Oxygen Delivery Room Air 11/17/22 18:00 11/17/22 18:00 11/17/22 19:50 Temperature Pulse Rate 99 99 Respiratory Rate 19 Blood Pressure 123/74 Pulse Oximetry 98 Oxygen Delivery Room Air 11/17/22 20:00 11/17/22 20:00 11/17/22 22:00 Temperature 36.8 C Pulse Rate 80 80 76 Respiratory Rate 18 Blood Pressure 139/103 H Pulse Oximetry 99 Oxygen Delivery 11/17/22 22:00 11/18/22 00:00 11/18/22 00:00 Temperature 37.7 C H Pulse Rate 73 80 80 Respiratory Rate 20 19 Blood Pressure 155/97 H 156/95 H Pulse Oximetry 98 97 Oxygen Delivery 11/18/22 00:00 11/18/22 02:00 11/18/22 02:00 Temperature Pulse Rate 80 95 90 Respiratory Rate 19 18 Blood Pressure 136/86 Pulse Oximetry 97 97 Oxygen Delivery Room Air 11/18/22 04:00 11/18/22 04:00 11/18/22 04:00 Temperature 36.9 C Pulse Rate 87 87 87 Respiratory Rate 22 H Blood Pressure 145/90 H Pulse Oximetry 97 Oxygen Delivery Room Air 11/18/22 06:00 11/18/22 06:00 11/18/22 08:00 Temperature Pulse Rate 85 86 87 Respiratory Rate 18 Blood Pressure 148/92 H Pulse Oximetry 97 Oxygen Delivery 11/18/22 08:00 11/18/22 08:00 11/18/22 10:00 Temperature 37.2 C Pulse Rate 87 87 97 Respiratory Rate 19 19 Blood Pressure 148/97 H 134/93 H Pulse Oximetry 96 96 98 Oxygen Delivery Room Air 11/18/22 12:00 11/18/22 12:00 11/18/22 13:00 Temperature 36.6 C 36.4 C Pulse Rate 106 H 106 H 95 Respiratory Rate 20 18 Blood Pressure 132/72 129/90 Pulse Oximetry 99 99 Oxygen Delivery Intake/Output Intake/Output: Intake & Output 11/15/22 11/16/22 11/17/22 11/18/22 23:59 23:59 23:59 23:59 Intake Total 1065 865 500 Ou
[2022-11-18 15:38] LABS: Hemoglobin A1C 10.4 % (<5.7)
[2022-11-18 17:22] LABS: Glucose Point of Care 84 mg/dl (65-105)
[2022-11-18 20:32] LABS: Glucose Point of Care 123 mg/dl (65-105)
[2022-11-19] VITALS (11 sets, daily range): BP systolic 119–160; BP diastolic 76–99; PULSE 81–102; RESP 16–18; TEMP 36.9–37.2; O2SAT 98–99
[2022-11-19 05:39] LABS: Hemoglobin 10.4 g/dL (14.0-18.0); Mean Corpuscular HGB Conc 32.5 g/dl (32-36); Mean Corpuscular Hemoglobin 27.5 pg (26-34); Mean Corpuscular Volume 84.7 fl (80-100); Mean Platelet Volume 9.9 fl (7.4-10.4); Platelet Count Result 133 k/mm3 (150-375); Red Blood Count 3.78 M/mm3 (4.6-6.20); White Blood Count 4.2 K/mm3 (4.5-10.0)
[2022-11-19 05:54] LABS: Alanine Aminotransferase 15 U/L (6-50); Alkaline Phosphatase 90 U/L (38-126); Anion Gap 6 mmol/L (8-16); Aspartate Amino Transferase 34 U/L (17-59); Bilirubin,Total 0.4 mg/dL (0.2-1.3); Blood Urea Nitrogen 35 mg/dL (9-20); Calcium 7.6 mg/dL (8.4-10.2); Carbon Dioxide 21 mmol/L (22-30); Chloride 107 mmol/L (98-107); Estimated CRCL calculation 22 ml/min; Estimated Glomerular Filt Rate 21; Glucose 87 mg/dL (65-110); Magnesium 1.9 mg/dL (1.6-2.3); Phosphorus 4.9 mg/dL (2.5-4.5); Sodium 134 mmol/L (137-145)
[2022-11-19 08:25] LABS: Glucose Point of Care 96 mg/dl (65-105)
[2022-11-19] MEDS: amLODIPine BESYLATE 5 MG TABLET 10 MG PO (08:49)
[2022-11-19] MEDS: MINERAL OIL/WHITE PETROLATUM OINTMENT 1 APPLIC EACH EYE ×2 (09:23→21:23)
[2022-11-19] MEDS: INSULIN GLARGINE (*BKC) 100 UNITS/ML 15 UNITS SUB-Q (09:24)
--- NOTE | 2022-11-19 09:45 | PM.IMPN ---
Progress Note: A&P Assessment and Plan (1) Altered mental status: Code(s): R41.82 - Altered mental status, unspecified Status: Acute (2) Diabetes mellitus: Code(s): E11.9 - Type 2 diabetes mellitus without complications Status: Acute (3) CKD (chronic kidney disease) stage 4, GFR 15-29 ml/min: Code(s): N18.4 - Chronic kidney disease, stage 4 (severe) Status: Acute (4) Hypertensive emergency: Code(s): I16.1 - Hypertensive emergency Status: Acute Plan Patient confused. Monitoring systolic blood pressure. Head CT was negative. Hypertensive encephalopathy. MRI results pending. Speech, PT OT eval. Systolic pressure of 160 Continue IV labetalol continue hydralazine and amlodipine HBA1c pending 10.4 ( goal <7.0%) , Monitor vitamin B12 levels Optimize PEYMAN-inhibitor and statin Routine glucose monitoring. Watch for Hypoglycemia. BMI goal < 25 Sliding scale insulin will lower Lantus to 15 units H&H equal 10.4/32 Creatinine 3.5 And gentle hydration. Avoid nephrotoxic drugs. Monitor antihypertensive drugs Avoid NSAIDs. Routine CMP monitor GFR. Monitor electrolytes potassium levels. Potassium 3.1 Dose antibiotics depending on creatinine clearance History of noncompliance of medications noted Subjective Date/time seen: 11/19/22 09:45 Interval history: Patient denies any complaints no chest pain or shortness of breath slept well last night no headaches Exam Narrative: GENERAL: Well appearing, well-nourished, non-toxic, in no acute distress. HEAD: Normocephalic, atraumatic. NECK: Supple. No adenopathy, no masses. RESPIRATORY: Airway patent, respirations nonlabored. Clear to auscultation bilaterally, no rales, rhonchi, wheezing. CARDIOVASCULAR: Regular rate and rhythm without murmurs, rubs, or gallops. Peripheral pulses 2+ and equal bilaterally. ABDOMINAL: Soft, nontender, nondistended, no hepatosplenomegaly. Normoactive BS. MUSCULOSKELETAL: no Epigastric and no hypochondrial tenderness SKIN: Warm, dry, normal color. No rashes. NEURO: A&O X3. Moves all extremities PSYCHIATRIC: Appropriate mood and affect. Normal interaction. Objective Data Vital Signs Vital Signs: Vital Signs - 24 hr 11/18/22 10:00 11/18/22 12:00 11/18/22 12:00 Temperature 36.6 C Pulse Rate 97 106 H 106 H Respiratory Rate 20 Blood Pressure 134/93 H 132/72 Pulse Oximetry 98 99 11/18/22 13:00 11/18/22 16:01 11/18/22 16:00 Temperature 36.4 C 36.9 C Pulse Rate 95 87 88 Respiratory Rate 18 18 Blood Pressure 129/90 156/95 H Pulse Oximetry 99 99 11/18/22 20:00 11/18/22 20:00 11/18/22 23:28 Temperature 36.9 C 36.9 C Pulse Rate 92 93 94 Respiratory Rate 18 17 Blood Pressure 158/93 H 159/88 H Pulse Oximetry 99 97 11/19/22 00:00 11/19/22 04:00 11/19/22 03:35 Temperature 37.0 C Pulse Rate 101 H 85 99 Respiratory Rate 18 Blood Pressure 146/99 H Pulse Oximetry 99 11/19/22 08:04 Temperature 37.1 C Pulse Rate 87 Respiratory Rate 16 Blood Pressure 160/98 H Pulse Oximetry 98 Intake/Output Intake/Output: Intake & Output 11/16/22 11/17/22 11/18/22 11/19/22 23:59 23:59 23:59 23:59 Intake Total 2429 973 3920 Output Total 200 1000 350 700 Balance 865 -135 990 -700 Meds/Results Medications: Active Medications Generic Name Dose Route Start Last Admin Trade Name Freq PRN Reason Stop Dose Admin Acetaminophen 650 mg 11/18/22 10:00 11/18/22 10:18 Acetaminophen 325 Mg Tablet PO 650 mg Q4H PRN Administration Headache Amlodipine Besylate 10 mg 11/18/22 09:00 11/19/22 08:49 Amlodipine Besylate 5 Mg Tablet PO 10 mg QAM IVAN Administration Dextrose 12.5 gm 11/16/22 22:22 Dextrose 50% 25 Gm/50 Ml Syringe IV PUSH PRN PRN Hypoglycemia Protocol Glucagon 1 mg 11/16/22 22:22 Glucagon For Inj 1 Mg Vial IM PRN PRN Hypoglycemia Protocol Glucose 15 gm 11/16/22
[2022-11-19] MEDS: POTASSIUM CHLORIDE 20 MEQ PACKET (FOR LIQUID) PO (10:04)
[2022-11-19 12:16] LABS: Glucose Point of Care 168 mg/dl (65-105)
[2022-11-19] MEDS: INSULIN ASPART (*BKC) 100 UNITS/ML SUB-Q ×2 (12:29→17:07)
[2022-11-19] MEDS: hydrALAZINE HCL 25 MG TABLET PO ×3 (12:32→21:23)
--- NOTE | 2022-11-19 12:55 | P.PNNP_ITS ---
Progress Note: A&P Assessment and Plan (1) CKD (chronic kidney disease): Code(s): N18.9 - Chronic kidney disease, unspecified Status: Chronic Assessment and Plan: * specifics of this are not clear * per patient/family, he was recently told about his kidney disease on recent ER visit at [facility] * records requested but not available at this time * he is apparently scheduled to see an outpatient customer pricing manager for further evaluation * appears compensated at this time * suspect poor control of hypertension and diabetes to blame * renal ultrasound unremarkable * serologies pending * follow repeat labs and UOP (2) Altered mental status: Code(s): R41.82 - Altered mental status, unspecified Status: Acute Assessment and Plan: * resolved * as noted on admission * associated with systolic BP > [address] * presumably hypertensive encephalopathy * more calm and awake today * BP doing better * negative tox screen * MRI of brain results noted * follow mentation (3) Hypertensive emergency: Code(s): I16.1 - Hypertensive emergency Status: Acute Assessment and Plan: * resolved * as noted by presentation * back on home oral medications * Echo reuslts reviewed * follow BP parameters * given CKD, would avoid overcontrol of BP -- aim for 140 - 150 systolic (4) Diabetes mellitus: Code(s): E11.9 - Type 2 diabetes mellitus without complications Status: Chronic Assessment and Plan: * poor control suspected * follow-up on A1c * on Lantus and SSI * glycemic control Would not be opposed to discharge from renal perspective; BP and renal function holding relatively stable and he already has appointment with Nephrology as an outpatient for further evaluation of his chronic kidney disease; serological testing results can likely be reviewed as an outpatient as well. Will continue to follow. Subjective Date/time seen: 11/19/22 12:55 Appears to be doing quite well at the time of my visit; no apparent distress noted; mentation seems back to baseline per family at bedside; no issues/events overnight or earlier this morning; no other complaints voiced currently. Exam Narrative: General: WD/WN AA male in NAD Heart: normal S1 and S2; no rub Lungs: clear to auscultation Abdomen: soft, nontender, nondistended, positive bowel sounds Extremities: no cyanosis or clubbing; no edema Skin: warm and dry Objective Data Vital Signs Vital Signs: Vital Signs Temp Pulse Resp BP Pulse Ox O2 Del Method 11/19/22 12:14 99.0 F 102 H 18 124/76 99 11/19/22 12:04 100 11/19/22 08:00 81 11/19/22 08:49 16 98 Room Air 11/19/22 08:04 98.8 F 87 16 160/98 H 98 11/19/22 03:35 98.6 F 99 18 146/99 H 99 11/19/22 04:00 85 11/19/22 00:00 101 H 11/18/22 23:28 98.4 F 94 17 159/88 H 97 11/18/22 20:00 93 11/18/22 20:00 98.5 F 92 18 158/93 H 99 Intake/Output Intake/Output: Intake & Output 11/16/22 11/17/22 11/18/22 11/19/22 23:59 23:59 23:59 23:59 Intake Total 4917 405 1263 920 Output Total 200 1000 350 700 Balance 865 -135 990 220 Meds/Results Medications:
--- NOTE | 2022-11-19 12:55 | PM.PNNEP ---
Progress Note: A&P Assessment and Plan (1) CKD (chronic kidney disease): Code(s): N18.9 - Chronic kidney disease, unspecified Status: Chronic Assessment and Plan: specifics of this are not clear per patient/family, he was recently told about his kidney disease on recent ER visit at [facility] records requested but not available at this time he is apparently scheduled to see an outpatient seasonal warehouse associate for further evaluation appears compensated at this time suspect poor control of hypertension and diabetes to blame renal ultrasound unremarkable serologies pending follow repeat labs and UOP (2) Altered mental status: Code(s): R41.82 - Altered mental status, unspecified Status: Acute Assessment and Plan: resolved as noted on admission associated with systolic BP > [address] presumably hypertensive encephalopathy more calm and awake today BP doing better negative tox screen MRI of brain results noted follow mentation (3) Hypertensive emergency: Code(s): I16.1 - Hypertensive emergency Status: Acute Assessment and Plan: resolved as noted by presentation back on home oral medications Echo reuslts reviewed follow BP parameters given CKD, would avoid overcontrol of BP -- aim for 140 - 150 systolic (4) Diabetes mellitus: Code(s): E11.9 - Type 2 diabetes mellitus without complications Status: Chronic Assessment and Plan: poor control suspected follow-up on A1c on Lantus and SSI glycemic control Would not be opposed to discharge from renal perspective; BP and renal function holding relatively stable and he already has appointment with Nephrology as an outpatient for further evaluation of his chronic kidney disease; serological testing results can likely be reviewed as an outpatient as well. Will continue to follow. Subjective Date/time seen: 11/19/22 12:55 Appears to be doing quite well at the time of my visit; no apparent distress noted; mentation seems back to baseline per family at bedside; no issues/events overnight or earlier this morning; no other complaints voiced currently. Exam Narrative: General: WD/WN AA male in NAD Heart: normal S1 and S2; no rub Lungs: clear to auscultation Abdomen: soft, nontender, nondistended, positive bowel sounds Extremities: no cyanosis or clubbing; no edema Skin: warm and dry Objective Data Vital Signs Vital Signs: Vital Signs Temp Pulse Resp BP Pulse Ox O2 Del Method 11/19/22 12:14 99.0 F 102 H 18 124/76 99 11/19/22 12:04 100 11/19/22 08:00 81 11/19/22 08:49 16 98 Room Air 11/19/22 08:04 98.8 F 87 16 160/98 H 98 11/19/22 03:35 98.6 F 99 18 146/99 H 99 11/19/22 04:00 85 11/19/22 00:00 101 H 11/18/22 23:28 98.4 F 94 17 159/88 H 97 11/18/22 20:00 93 11/18/22 20:00 98.5 F 92 18 158/93 H 99 Intake/Output Intake/Output: Intake & Output 11/16/22 11/17/22 11/18/22 11/19/22 23:59 23:59 23:59 23:59 Intake Total 0799 760 1098 920 Output Total 200 1000 350 700 Balance 865 -135 990 220 Meds/Results Medications: Active Medications Generic Name Dose Route Start Last Admin Trade Name Freq PRN Reason Stop Dose Admin Acetaminophen 650 mg 11/18/22 10:00 11/18/22 10:18 Acetaminophen 325 Mg Tablet PO 650 mg Q4H PRN Administration Headache Amlodipine Besylate 10 mg 11/18/22 09:00 11/19/22 08:49 Amlodipine Besylate 5 Mg Tablet PO 10 mg QAM IVAN Administration Dextrose 12.5 gm 11/16/22 22:22 Dextrose 50% 25 Gm/50 Ml Syringe IV PUSH PRN PRN Hypoglycemia Protocol Glucagon 1 mg 11/16/22 22:22 Glucagon For Inj 1 Mg Vial IM PRN PRN Hypoglycemia Protocol Glucose 15 gm 11/16/22 22:22 Glucose Oral Gel 15 Gm Of Glucse In 37.5 Gm Tube PO PRN PRN Hypoglycemia Protocol Hydra
[2022-11-19 17:00] LABS: Glucose Point of Care 129 mg/dl (65-105)
[2022-11-19 18:59] LABS: Osmolality, Urine 492 mOsm/kg (50-1200)
[2022-11-19 20:37] LABS: Albumin 2.8 g/dL (3.8-4.8); Alpha 1 Globulin 0.3 g/dL (0.2-0.3); Alpha 2 Globulin 0.9 g/dL (0.5-0.9); Beta 1 Globulin 0.4 g/dL (0.4-0.6); Gamma Globulin 1.4 g/dL (0.8-1.7); Protein, Total 6.2 g/dL (6.1-8.1)
[2022-11-19] MEDS: ACETAMINOPHEN 325 MG TABLET 650 MG PO (21:28)
[2022-11-20] VITALS (8 sets, daily range): BP systolic 114–154; BP diastolic 69–92; PULSE 78–105; RESP 16–18; TEMP 36.4–36.9; O2SAT 98–100
[2022-11-20 04:21] LABS: Glucose Point of Care 150 mg/dl (65-105)
[2022-11-20 05:49] LABS: Hematocrit 32.2 % (42.0-52.0); Hemoglobin 10.4 g/dL (14.0-18.0); Mean Corpuscular HGB Conc 32.3 g/dl (32-36); Mean Corpuscular Hemoglobin 27.5 pg (26-34); Mean Corpuscular Volume 85.2 fl (80-100); Mean Platelet Volume 10.1 fl (7.4-10.4); Platelet Count Result 131 k/mm3 (150-375); Red Blood Count 3.78 M/mm3 (4.6-6.20); Red Cell Distribution Width 12.3 % (11.5-14.5); White Blood Count 3.7 K/mm3 (4.5-10.0)
[2022-11-20 05:58] LABS: Alanine Aminotransferase 15 U/L (6-50); Alkaline Phosphatase 88 U/L (38-126); Anion Gap 4 mmol/L (8-16); Aspartate Amino Transferase 30 U/L (17-59); Bilirubin,Total 0.3 mg/dL (0.2-1.3); Blood Urea Nitrogen 39 mg/dL (9-20); Calcium 7.7 mg/dL (8.4-10.2); Carbon Dioxide 21 mmol/L (22-30); Chloride 108 mmol/L (98-107); Estimated CRCL calculation 21 ml/min; Estimated Glomerular Filt Rate 20; Glucose 118 mg/dL (65-110); Phosphorus 4.8 mg/dL (2.5-4.5); Potassium 3.3 mmol/L (3.4-5.0); Sodium 133 mmol/L (137-145)
[2022-11-20] MEDS: INSULIN ASPART (*BKC) 100 UNITS/ML SUB-Q ×3 (08:22→12:19)
[2022-11-20] MEDS: INSULIN GLARGINE (*BKC) 100 UNITS/ML 15 UNITS SUB-Q (08:23)
[2022-11-20 08:28] LABS: Glucose Point of Care 138 mg/dl (65-105)
[2022-11-20] MEDS: MINERAL OIL/WHITE PETROLATUM OINTMENT 1 APPLIC EACH EYE (08:31)
[2022-11-20] MEDS: hydrALAZINE HCL 25 MG TABLET PO ×2 (08:31→12:21)
[2022-11-20] MEDS: amLODIPine BESYLATE 5 MG TABLET 10 MG PO (08:31)
--- NOTE | 2022-11-20 10:02 | PM.DS ---
DS: Admitting Diagnosis Discharge Date November 20, 2022 Admitting Diagnosis Confusion and altered mental status DS: Discharge Diagnosis Discharge Diagnosis (1) Uncontrolled hypertension: Code(s): I10 - Essential (primary) hypertension Status: Acute (2) Hypertensive emergency: Code(s): I16.1 - Hypertensive emergency Status: Acute (3) Noncompliance: Code(s): Z91.199 - Patient's noncompliance with other medical treatment and regimen due to unspecified reason Status: Acute (4) Diabetes mellitus: Code(s): E11.9 - Type 2 diabetes mellitus without complications Status: Acute (5) Hyperlipidemia: Code(s): E78.5 - Hyperlipidemia, unspecified Status: Acute (6) CKD (chronic kidney disease) stage 4, GFR 15-29 ml/min: Code(s): N18.4 - Chronic kidney disease, stage 4 (severe) Status: Acute DS: Summary Hospital Course Hospital Course: This is a 62-year-old male patient who has a history of hypertension that is been uncontrolled for quite some time.? The patient was brought into the emergency room from home due to altered mental status.? The patient was difficult to arouse this morning and his called 911.? The patient was not responding to verbal cues or sternal rub.? When the patient did wake up use very confused.? Upon arrival to the emergency room he was quite agitated and combative.? The family stated that there was no alcohol or drug use.? According to the daughter the patient was sent home from work 1 day due to elevated blood pressure.? His medications were changed around but his blood pressure remained elevated.? The patient has a history of diabetes and chronic kidney disease and was scheduled to see a polisher eyeglass frames within the next couple weeks.? Head CT was read as probable small chronic lacunar infarcts in bilateral basal ganglia. The patient seen by Cardiology and noted to have severe concentric increased left ventricular wall thickening with ejection fraction of 45-50%. Patient blood pressure was controlled through IV labetalol and hydralazine. Patient initial systolic readings were 233 in the emergency room CT of the head was done. Patient also had hypertensive encephalopathy during the hospital stay patient's mental status improved a lot patient has baseline chronic renal failure patient's last creatinine is 3.7. Patient has been advised greatly be compliant with insulin also compliant with blood pressure medication soaked spoke to patient's family at length. Patient going home on prescriptions of hydralazine amlodipine Lantus and Humalog. Nephrology consult was reviewed and appreciated at this point no further workup is needed patient can follow up with Nephrology as an outpatient in 1 week. Patient advised to follow-up with the primary care physician and research assistant as an outpatient basis in about 1 week Time Spent with Patient Time attestation: Total time spent providing and/or coordinating discharge services: Exam Narrative: GENERAL: Well appearing, well-nourished, non-toxic, in no acute distress. HEAD: Normocephalic, atraumatic. NECK: Supple. No adenopathy, no masses. RESPIRATORY: Airway patent, respirations nonlabored. Clear to auscultation bilaterally, no rales, rhonchi, wheezing. CARDIOVASCULAR: Regular rate and rhythm without murmurs, rubs, or gallops. Peripheral pulses 2+ and equal bilaterally. ABDOMINAL: Soft, nontender, nondistended, no hepatosplenomegaly. Normoactive BS. MUSCULOSKELETAL: no Epigastric and no hypochondrial tenderness SKIN: Warm, dry, normal color. No rashes. NEURO: A&O X3. Moves all extremities PSYCHIATRIC: Appropriate mood and affect. Normal interaction. DS: Data Data Completed and Pending Labs on day of discharge: Labs from last 24 hours 11/20/22 11/20/22 11/20/22 08:25 05:31 05:31 WBC 3.7 L RBC 3.78 L Hgb 10.4 L Hct 32.2 L MCV 85.2 MCH 27.5 MCHC 32.3 RDW 12.3 Plt Count 131
[2022-11-20 12:06] LABS: Glucose Point of Care 207 mg/dl (65-105)
[2022-11-20 12:41] LABS: SM Antibody <1.0; SM/RNP Antibody <1.0
[2022-11-21 11:10] LABS: Complement Total CH50 >60 U/mL (31-60)
[2022-11-21 11:15] LABS: Anti Streptolysin O Screen <50 IU/mL (<200)
[2022-11-21 12:31] LABS: Anti Glomerular Basement Memb <1.0 AI (<1.0)
[2022-11-21 20:07] LABS: Strep DNASE B Antibody <95 U/mL (<301)
[2022-11-23 22:45] LABS: ANCA Screen Negative (Negative)
[2022-11-25 17:41] LABS: Cryoglobulin, QL Negative (Negative)
[2022-11-30 10:29] LABS: Creatinine, Random Urine 115 mg/dL (20-320); Total Protein/Creatinine Ratio 7591 mg/g creat (25-148)
== END 2022-11-20 13:58 | disposition home or self-care (01) | DRG 78 ==
LOC: ANHED 15:29 → ANHICU 15:41 → ANH2MED 11-18 12:49
PROVIDERS: Internal Medicine; Nurse Practitioner; Admitting Provider Family Medicine; Emergency Provider Family Medicine; Visit Provider Internal Medicine
DX: I67.4 Hypertensive encephalopathy (principal); I16.1 Hypertensive emergency; N18.4 Chronic kidney disease, stage 4 (severe); E78.5 Hyperlipidemia, unspecified; E11.22 Type 2 diabetes mellitus with diabetic chronic kidney disease; Z91.199 Patient's noncompliance with other medical treatment and regimen due to unspecified reason; Z20.822 Contact with and (suspected) exposure to COVID-19
CPT/HCPCS: 36415; 36600; 70450; 70551; 76775; 80053; 80069; 80307; 81001; 82140; 82436; 82550; 82570; 82595; 82805; 82948; 83036; 83520; 83605; 83735; 83930; 83935; 84100; 84133; 84155; 84156; 84165; 84166; 84443; 84484; 85025; 85027; 85610; 85652; 85999; 86036; 86038; 86060; 86140; 86160; 86162; 86215; 86225; 86235; 86334; 86335; 86703; 86705; 86706; 86803; 87340; 87636; 92610; 93005; 93306; 93880; 96361; 96374; 96375; 97110; 97116; 97161; 97165; 97530; 99285; A9270; G0432; J0131; J0360; J1815; J2060; J3475; J7030; J7050

== ENCOUNTER 2023-01-01 11:59 | Emergency (ER) | payer BC, SELFPAY ==
[2023-01-01] VITALS (17 sets, daily range): BP systolic 130–163; BP diastolic 77–92; PULSE 87–96; RESP 14–23; TEMP 36.8; O2SAT 98–100
--- NOTE | ~2023-01-01 | CT_ITS ---
EXAMINATION: CT brain wo con DATE: 01/01/2023 13:25 INDICATION: Vertigo. TECHNIQUE: Computed tomography (CT) of the head was performed without intravenous contrast. The mA wa s adjusted according to patient size. Iterative reconstruction technique was employed. The dose-lengt h product was 605.33 mGy-cm. COMPARISON: Head CT 11/16/2022, brain MRI 11/17/2022 FINDINGS: There are old infarcts involving the left thalamus and posterior limb left internal capsule . There are scattered areas of low attenuation in the cerebral white matter. There is no intracranial hemorrhage, acute infarction, or abnormal intracranial mass lesion. The ventricles are normal in siz e. There are likely changes of ocular lens replacement surgeries. There is mild mucosal thickening in the paranasal sinuses. The mastoid air cells are normal. There is cerumen in left external auditory canal. IMPRESSION: 1. 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 2. Moderate nonspecific cerebral white matter disease, which likely represents chronic small vessel i schemic disease. Reviewed, dictated and finalized at location A. EL SERVICE TECHNICIAN IMPRESSION: 1. 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 2. Moderate nonspecific cerebral white matter disease, which likely represents chronic small vessel ischemic disease.
--- NOTE | ~2023-01-01 | XR_ITS ---
EXAMINATION: XR chest 1V DATE: 01/01/2023 13:27 INDICATION: Dizziness and vomiting. TECHNIQUE: A single frontal view of the chest was obtained. COMPARISON: None. FINDINGS: There is mild elevation of left hemidiaphragm. There is mild atelectasis in left lower lung zone. No pleural effusion or pneumothorax. The heart size is normal. IMPRESSION: 1. Mild elevation of left hemidiaphragm with mild atelectasis in left lower lung zone. Reviewed, dictated and finalized at location A. FOOD WORKER IMPRESSION: 1. Mild elevation of left hemidiaphragm with mild atelectasis in left lower bassem g zone.
--- NOTE | 2023-01-01 12:03 | ED.NAVMDI ---
HPI - Nausea/Vomiting/Diarrhea General Chief complaint: Nausea/Vomiting/Diarrhea Stated complaint: vomiting, hypoglycemia, dizzy Time Seen by Provider: 01/01/23 12:02 Source: patient and EMS Mode of arrival: EMS History of Present Illness HPI Narrative: Patient was sitting eating breakfast suddenly developed severe dizziness, everything is spinning, associated with nausea, vomiting and diaphoresis. Worse with any head or body movement, better remaining still. Patient denies having similar symptoms in the past. Currently feeling much better and his symptoms are resolved. History of diabetes, hypertension, hyperlipidemia and CKD. Patient blood glucose was 58 at home, started on D10, patient took at least 50 units of Lantus prior to starting his breakfast. Patient should take 30 units. Patient have chronic diabetic vision problem which cannot see clearly. Today he did not ask his for help, and received what ever amount of insulin. Patient been followed by coreroom foundry laborer, on arrival to the ED blood glucose was 38. 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 He did have 2 sons but 1 in an injury. He has 1 daughter. He has never smoked. He works for [employer]. His is the durable power assistant county attorney for healthcare. Code status full code Smoking status: Never smoker Alcohol intake: never Substance use: never Substance use type: does not use Spiritual care concerns: No Exam Narrative: General appearance: Well-developed, well-nourished Skin: Normal color Head: Normocephalic, nontraumatic Eyes: Clear conjunctiva ENT: Oropharynx normal, ears normal, nose normal Neck: Supple, nontender Chest and respiratory: Airway patent, no respiratory distress, no accessory muscle use Heart: Regular rate/rhythm Abdomen: Soft, nontender, no organomegaly, quiet bowel sounds Vascular: Normal peripheral pulses, normal capillary refill. Musculoskeletal: Normal range of motion, nontender back Neurologic: Alert and oriented ?3, BEAM BUILDER is normal as tested, no gross motor deficit Course Reevaluation(s) Reevaluation #1: Feeling much better, patient received D50 IV, and a regular meal. Date: 01/01/23 Time: 14:41 Vital Signs Vital signs: Vital Signs Temperature 36.8 C 01/01/23 12:01 Pulse Rate 88 01/01/23 12:01 Respiratory Rate 18 01/01/23 12:01 Blood Pressure 151/87 H 01/01/23 12:01 Pulse Oximetry 99 01/01/23 12:01 Temperature 36.8 C 01/01/23 12:01 Pulse Rate 88 01/01/23 12:01 Respiratory Rate 18 01/01/23 12:01 Blood Pressure 151/87 H 01/01/23 12:01 Pulse Oximetry 99 01/01/23 12:01 MDM - Nausea/Vomiting/Diarrhea MDM Narrative Medical decision making narrative: Patient presents w
[2023-01-01 12:10] LABS: Glucose Point of Care 88 mg/dl (65-105)
--- NOTE | 2023-01-01 12:25 | ECG_ITS ---
Measurements Intervals [place] Rate: 91 P: 37 WI: 140 QRS: 15 QRSD: 102 T: 245 QT: 374 QTc: 462 Interpretive Statements SINUS RHYTHM POSSIBLE LEFT ATRIAL ENLARGEMENT BORDERLINE ST-T WAVE ABNORMALITY- INF/LAT LEADS BASELINE ARTIFACT- I, II, AVR, AVL, AVF, V1, V5-V6 BORDERLINE ECG COMPARED TO ECG 11/16/2022 14:07:37 SINUS RHYTHM NOW PRESENT Electronically Signed On 01-01-2023 14:36:49 CAUSTIC ROOM OPERATOR by Mustapha Ramon D.O.
[2023-01-01] MEDS: ONDANSETRON INJ 4 MG/2 ML VIAL IV PUSH (12:43)
[2023-01-01] MEDS: MECLIZINE HCL 25 MG TABLET PO (12:43)
[2023-01-01] MEDS: diazePAM (*CRX) 5 MG TABLET 2.5 MG PO (12:44)
[2023-01-01] MEDS: SODIUM CHLORIDE 0.9% IV 1,000 ML 999 ML IV CONT (12:46)
[2023-01-01] MEDS: DEXTROSE 50% 25 GM/50 ML SYRINGE IV PUSH (12:50)
[2023-01-01 12:52] LABS: Glucose Point of Care 38 mg/dl (65-105)
[2023-01-01 13:00] LABS: Basophils Percent Auto 0.7 % (0.2-1.2); Eosinophils Absolute Auto 0.1 K/mm3 (0-0.3); Eosinophils Percent Auto 0.8 % (0-4.4); Immature Granulocyte Absolute 0.01 K/mm3 (0.00-0.031); Immature Granulocyte Percent A 0.2 % (0-0.5); Lymphocytes Absolute Auto 1.72 K/mm3 (0.9-3.2); Mean Corpuscular HGB Conc 32.3 g/dl (32-36); Mean Corpuscular Hemoglobin 27.1 pg (26-34); Mean Platelet Volume 9.7 fl (7.4-10.4); Monocytes Absolute Auto 0.5 K/mm3 (0.1-0.6); Monocytes Percent Auto 7.9 % (2.6-8.5); Neutrophils Absolute Auto 3.7 K/mm3 (1.3-6.7); Neutrophils Percent Auto 61.4 % (45.5-73.1); Platelet Count Result 180 k/mm3 (150-375); Red Blood Count 3.69 M/mm3 (4.6-6.20); Red Cell Distribution Width 13.1 % (11.5-14.5); White Blood Count 5.9 K/mm3 (4.5-10.0)
[2023-01-01 13:14] LABS: Alanine Aminotransferase 15 U/L (6-50); Albumin Level 3.3 g/dL (3.5-5.1); Alkaline Phosphatase 81 U/L (38-126); Anion Gap 8 mmol/L (8-16); Aspartate Amino Transferase 22 U/L (17-59); Bilirubin,Total 0.4 mg/dL (0.2-1.3); Blood Urea Nitrogen 25 mg/dL (9-20); Calcium 7.8 mg/dL (8.4-10.2); Carbon Dioxide 19 mmol/L (22-30); Chloride 115 mmol/L (98-107); Estimated CRCL calculation 27 ml/min; Estimated Glomerular Filt Rate 29; Glucose 250 mg/dL (65-110); Potassium 3.5 mmol/L (3.4-5.0); Sodium 142 mmol/L (137-145)
[2023-01-01 13:26] LABS: Troponin I < 0.012 ng/mL (0.000-0.034)
[2023-01-01 14:55] LABS: Glucose Point of Care 59 mg/dl (65-105)
[2023-01-01 15:35] LABS: Glucose Point of Care 93 mg/dl (65-105)
[2023-01-01 16:23] LABS: Glucose Point of Care 95 mg/dl (65-105)
--- NOTE | 2023-01-07 06:25 | PC.NURSE ---
LATE ENTRY This note is being entered to document information to the patient's record. The following information was omitted on [01/01/23], by [jacob pena]. NS ended [id number]
== END 2023-01-01 16:20 | disposition home or self-care (01) ==
PROVIDERS: Emergency Provider Emergency Medicine
DX: E11.649 Type 2 diabetes mellitus with hypoglycemia without coma (principal); Z91.14 Patient's other noncompliance with medication regimen; E78.5 Hyperlipidemia, unspecified; E11.22 Type 2 diabetes mellitus with diabetic chronic kidney disease; I12.9 Hypertensive chronic kidney disease with stage 1 through stage 4 chronic kidney disease, or unspecified chronic kidney disease; N18.9 Chronic kidney disease, unspecified; E11.39 Type 2 diabetes mellitus with other diabetic ophthalmic complication; H53.482 Generalized contraction of visual field, left eye; H54.7 Unspecified visual loss; Z98.49 Cataract extraction status, unspecified eye; Z79.4 Long term (current) use of insulin; R90.82 White matter disease, unspecified; R94.31 Abnormal electrocardiogram [ECG] [EKG]
CPT/HCPCS: 36415; 70450; 71045; 80053; 82948; 84443; 84484; 85025; 93005; 96361; 96374; 99284; A9270; J2405; J7030